=== PATIENT | female | born 1980 | race Caucasian/White ===

== ENCOUNTER 2017-02-02 12:58 | Emergency (ER) | payer SELFPAY ==
[2017-02-02 13:40] LABS: APPEARANCE,URINE SLIGHTLY-CLOUDY; BILIRUBIN,URINE NEGATIVE (NEGATIVE); GLUCOSE, URINE NEGATIVE (NEGATIVE); KETONES,URINE NEGATIVE (NEGATIVE); LEUKOCYTE ESTERASE,URINE TRACE (NEGATIVE); NITRITE,URINE NEGATIVE (NEGATIVE); PROTEIN,URINE NEGATIVE (NEGATIVE); UROBILINOGEN,URINE NEGATIVE mg/dL (<2.0)
--- NOTE | 2017-02-02 14:03 | ER Document Report ---
ED General - General Chief Complaint: Abdominal Pain Stated Complaint: STOMACH PAIN Time Seen by Provider: 02/02/17 13:35 Mode of Arrival: Ambulatory Information source: Patient Notes: 36-year-old female presents with complaints of abdominal pain and distention. Patient believes she is has not had a period in over a year patient denies any fevers or chills notes abdomen is firm and believes as a baby Patient took urine test last night which was positive TRAVEL OUTSIDE OF THE [place] IN LAST 30 DAYS: No - HPI Onset: Other Onset/Duration: Persistent Quality of pain: Cramping Severity: Mild Pain Level: 1 Associated symptoms: None Exacerbated by: Denies Relieved by: Denies Similar symptoms previously: No Recently seen / treated by doctor: No - Related Data Allergies/Adverse Reactions: ceftriaxone sodium [From Rocephin] Allergy (Severe, Verified 02/26/15 12:15) Past Medical History - Social History Smoking Status: Current Every Day Smoker Cigarette use (# per day): Yes Chew tobacco use (# tins/day): No Smoking Education Provided: Yes - Patient counselled regarding cessation for 4 minutes Frequency of alcohol use: Rare Drug Abuse: Marijuana Family History: None Endocrine Medical History: Reports: Hx Hypothyroidism Renal/ Medical History: Denies: Hx Peritoneal Dialysis Past Surgical History: Reports: Hx Gynecologic Surgery - dnc, Hx Oral Surgery - wisdom, Hx Thyroid Surgery - Immunizations Hx Diphtheria, Pertussis, Tetanus Vaccination: Yes Review of Systems - Review of Systems Notes: REVIEW OF SYSTEMS: CONSTITUTIONAL : Denies fever, chills, or sweats. Denies recent illness. EENT: Denies eye, ear, throat, or mouth pain or symptoms. Denies nasal or sinus congestion or discharge. Denies throat, tongue, or mouth swelling or difficulty swallowing. CARDIOVASCULAR: Denies chest pain. Denies palpitations or racing or irregular heart beat. Denies ankle edema. RESPIRATORY: Denies cough, cold, or chest congestion. Denies shortness of breath, difficulty breathing, or wheezing. GASTROINTESTINAL: Admits to abdominal pain distention GENITOURINARY: Denies difficulty urinating, painful urination, burning, frequency, blood in urine, or discharge. FEMALE GENITOURINARY: States she has not had a period in 1 year MUSCULOSKELETAL: Denies back or neck pain or stiffness. Denies joint pain or swelling. SKIN: Denies rash, lesions or sores. HEMATOLOGIC : Denies easy bruising or bleeding. LYMPHATIC: Denies swollen, enlarged glands. NEUROLOGICAL: Denies confusion or altered mental status. Denies passing out or loss of consciousness. Denies dizziness or lightheadedness. Denies headache. Denies weakness or paralysis or loss of use of either side. Denies problems with gait or speech. Denies sensory loss, numbness, or tingling. Denies seizures. PSYCHIATRIC: Denies anxiety or stress. Denies depression, suicidal ideation, or homicidal ideation. ALL OTHER SYSTEMS REVIEWED AND NEGATIVE. PHYSICAL EXAMINATION: GENERAL: Well-appearing, well-nourished and in no acute distress. HEAD: Atraumatic, normocephalic. EYES: Pupils equal round and reactive to light, extraocular movements intact, conjunctiva are normal. ENT: Nares patent, oropharynx clear without exudates. Moist mucous membranes. NECK: Normal range of motion, supple without lymphadenopathy LUNGS: Breath sounds clear to auscultation bilaterally and equal. No wheezes rales or rhonchi. HEART: Regular rate and rhythm without murmurs ABDOMEN: Soft, nontender, nondistended abdomen. No guarding, no rebound. No masses appreciated. Female : deferred Musculoskeletal: Normal range of motion, no pitting or edema. No cyanosis. NEUROLOGICAL: Cranial nerves grossly intact. Normal speech, normal gait. Normal sensory, motor exams PSYCH: Normal mood, normal affect. SKIN: Warm, Dry, normal turgor, no rashes or lesions noted. Dictation was performed using [employer] voice recognition software Physical Exam - Vital signs Vitals: Temp Pulse BP Pulse Ox 97.5 F 92 102/66 100 02/02/17 13:05 02/02/17 13:05 02/02/17 13:05 02/02/17 13:05 Course - Re-evaluation Re-evalutation: 02/02/17 15:02 Lab work is pending to rule out and had thorough life-threatening issues 02/02/17 16:19 pt is noted to be , hypothyroidism noted. 02/02/17 17:36 still awaiting u/s 02/02/17 18:42 Patient's ultrasound is consistent with a 20 week 6 day , I have given the patient smoking cessation instructions medication for her thyroid follow-up with health department follow-up with [facility] After performing a Medical Screening Examination, I estimate there is LOW risk for ACUTE APPENDICITIS, BOWEL OBSTRUCTION, ACUTE CHOLECYSTITIS, PERFORATED DIVERTICULITIS, INCARCERATED HERNIA, PANCREATITIS, PELVIC INFLAMMATORY DISEASE, PERFORATED ULCER, ECTOPIC , or TUBO-OVARIAN ABSCESS, thus I consider the discharge disposition reasonable. Also, there is no evidence or peritonitis , sepsis, or toxicity. I have reevaluated this patient multiple times and no significant life threatening changes are noted. The patient and I have discussed the diagnosis and risks, and we agree with discharging home with close follow-up with the understanding that symptoms and presentations can change. We also discussed returning to the Emergency Department immediately if new or worsening symptoms occur. We have discussed the symptoms which are most concerning (e.g., bloody stool, fever, changing or worsening pain, vomiting) that necessitate immediate return. - Vital Signs Vital signs: Temp Pulse Resp BP Pulse Ox 98.1 F 92 16 105/68 100 02/02/17 18:15 02/02/17 18:15 02/02/17 18:15 02/02/17 18:15 02/02/17 18:15 - Laboratory Result Diagrams: 02/02/17 14:15 02/02/17 14:15 Laboratory results interpreted by me: 02/02/17 02/02/17 02/02/17 13:05 14:15 14:15 RBC 3.71 L Hgb 11.9 L Hct 34.7 L Sodium 136.9 L Glucose 72 L TSH Beta HCG, Quant 95367.00 H Ur Leukocyte Esterase TRACE H 02/02/17 14:15 RBC Hgb Hct Sodium Glucose TSH 23.30 H Beta HCG, Quant Ur Leukocyte Esterase - Diagnostic Test Radiology reviewed: Image reviewed, Reports reviewed - results given to patient Discharge - Discharge Clinical Impression: Qualifiers: Weeks of gestation: 21 weeks Qualified Code(s): Z3A.21 - 21 weeks gestation of Hypothyroid Qualifiers: Hypothyroidism type: unspecified Qualified Code(s): E03.9 - Hypothyroidism, unspecified Condition: Stable Disposition: HOME, SELF-CARE Additional Instructions: Follow up with your physician tomorrow for further care or return to the ED IMMEDIATELY if symptoms worsen or new concerns occur. If you cannot afford to follow up with your primary care physician a list of low cost clinics have been provided at the end of your discharge papers as well. Prescriptions: Levothyroxine Sodium [Synthroid 0.05 mg Tablet] 0.05 mg PO DAILY #30 tablet No122/Iron/Folic Acid [ Multi Tablet] 1 each PO DAILY #30 tablet Forms: Return to Work Referrals: EMETERIO SARMIENTO MD [Primary Care Provider] - Follow up as needed
[2017-02-02 14:28] LABS: ABSOLUTE EOSINOPHILS # (AUTO) 0.2 10^3/uL (0.0-0.6); ABSOLUTE LYMPHOCYTES (AUTO) 1.9 10^3/uL (0.5-4.7); ABSOLUTE MONOCYTES (AUTO) 0.6 10^3/uL (0.1-1.4); ABSOLUTE NEUT (AUTO) 6.8 10^3/uL (1.7-8.2); BASOPHILS % (AUTO) 0.4 % (0-2); EOSINOPHILS % (AUTO) 1.7 % (0-6); HEMATOCRIT 34.7 % (36.0-47.0); HEMOGLOBIN 11.9 g/dL (12.0-15.5); LYMPHOCYTES % (AUTO) 19.7 % (13-45); MEAN CORPUSCULAR HGB CONC 34.2 g/dL (32.0-36.0); MEAN CORPUSCULAR VOLUME 94 fl (80-97); MONOCYTES % (AUTO) 6.2 % (3-13); RED BLOOD COUNT 3.71 10^6/uL (3.72-5.28); RED CELL DISTRIBUTION WIDTH 13.9 % (11.5-14.0); WHITE BLOOD COUNT 9.5 10^3/uL (4.0-10.5)
[2017-02-02 14:49] LABS: ALANINE AMINOTRANSFERASE 26 U/L (9-52); ALBUMIN 3.7 g/dL (3.5-5.0); ALKALINE PHOSPHATASE 52 U/L (38-126); ANION GAP 7 (5-19); ASPARTATE AMINO TRANSFERASE 18 U/L (14-36); BILIRUBIN,DIRECT 0.3 mg/dL (0.0-0.4); BILIRUBIN,TOTAL 0.3 mg/dL (0.2-1.3); BLOOD UREA NITROGEN 7 mg/dL (7-20); CALCIUM 9.3 mg/dL (8.4-10.2); CARBON DIOXIDE 24 mmol/L (22-30); CHLORIDE 106 mmol/L (98-107); GLUCOSE 72 mg/dL (75-110); SODIUM 136.9 mmol/L (137-145); TOTAL PROTEIN 6.3 g/dL (6.3-8.2)
--- NOTE | 2017-02-02 17:51 | RADIOLOGY REPORT (SQ) ---
EXAM DESCRIPTION: U/S OB 14+ TRNABD 1GES W/O DOP COMPLETED DATE/TIME: 02/02/2017 5:42 pm REASON FOR STUDY: abd pain COMPARISON: None. TECHNIQUE: Limited transabdominal grayscale ultrasound for evaluation of specific requested obstetri shante parameters. LIMITATIONS: None. FINDINGS: Live intrauterine Leon with ultrasound composite age measuring 20 weeks 6 d ays, TINA 06/16/2017. EFW 401 g. Posterior placenta. Breech presentation. CERVICAL LENGTH: 3.0 cm Closed. LVP: 4.1 cm cm. FHR: 153 beats per minute. PRESENTATION: Cephalic. OTHER: Ovaries not visualized. IMPRESSION: LIMITED OBSTETRICAL ULTRASOUND WITH MEASURED PARAMETERS DELINEATED ABOVE. Trimester of : Second trimester - 13 weeks 1 day to 27 weeks 6 days. TECHNICAL DOCUMENTATION: JOB ID: [id number] [employer]- All Rights Reserved
[2017-02-02 18:28] VITALS: BP 105/68
== END 2017-02-02 18:15 | disposition home or self-care (01) ==
LOC: ER 12:58
DX: O99.282 Endocrine, nutritional and metabolic diseases complicating pregnancy, second trimester (principal); E03.9 Hypothyroidism, unspecified; O99.332 Smoking (tobacco) complicating pregnancy, second trimester; Z3A.20 20 weeks gestation of pregnancy
CPT/HCPCS: 36415; 76805; 80053; 81001; 84443; 84702; 85025; 99284; 99406

== ENCOUNTER 2017-05-17 11:57 | Outpatient (CLI) | payer MEDICAID ==
--- NOTE | 2017-05-17 12:32 | Non Stress Test Report ---
Non Stress Test Datetime Report Generated by CPN: 05/17/2017 12:31 DEMOGRAPHIC EGA NST: 35.5 INDICATION Indication for Study: Other Indication for Study (NST) Other: AMA VITAL SIGNS Temperature - NST: 97.4 Pulse - NST: 67 RESP - NST: 18 NBPSYS NST: 87 NBPDIA NST: 54 MONITORING Monitor Explained: Monitor Explained; Test Explained; Patient Verbalized Understanding Time on Monitor: 05/17/2017 12:10 Time off Monitor: 05/17/2017 12:31 NST Duration: 21 NST INTERVENTIONS NST Interventions: PO Hydration; Reposition Patient Physician Notified NST: A Emmel CNM BABY A: [id number] BABY A Movement : Present Contraction Frequency : irregular FHR Baseline : 120 Accelerations : 15X15 Decelerations : None Variability : Moderate 6-25bpm NST Review: Meets Criteria for Reactive NST NST Review and Verified By : Floresita Grider RNC NST Results: Reactive NST REPORT Report Trigger: Send Report
== END 2017-05-17 12:35 | disposition home or self-care (01) ==
LOC: LC 11:57
PROVIDERS: ATTEND Obstetrics & Gynecology Gynecology
PROC: 4A1HXCZ Monitoring of Products of Conception, Cardiac Rate, External Approach (ICD-10-PCS; principal; 2017-05-17)
DX: Z34.93 Encounter for supervision of normal pregnancy, unspecified, third trimester (principal)
CPT/HCPCS: 59025

== ENCOUNTER 2017-06-15 08:26 | Inpatient (IN) | payer MEDICAID ==
[2017-06-15] MEDS ORDERED: PENICILLIN G POTASSIUM 5,000,000 UNIT in DEXTROSE 5%-WATER 100 ML IV ONE (09:03)
[2017-06-15] MEDS ORDERED: RINGERS SOLUTION,LACTATED 1,000 ML IV ONE (09:03)
[2017-06-15] MEDS ORDERED: LIDOCAINE 1% INJ-PF (10 MG/ML) 30 ML SDV ONE (09:27)
[2017-06-15] MEDS ORDERED: PENICILLIN G-K 5 MILLION UNIT VIAL ONE (09:27)
[2017-06-15] MEDS ORDERED: MISOPROSTOL 0.2 MG TABLET ONE (09:27)
[2017-06-15] MEDS ORDERED: OXYTOCIN/NORMAL SALINE 20 UNIT/1,000 ML RTUINJ ONE (09:27)
[2017-06-15 09:38] LABS: APPEARANCE,URINE SLIGHTLY-CLOUDY; BILIRUBIN,URINE NEGATIVE (NEGATIVE); COLOR,URINE STRAW; GLUCOSE, URINE NEGATIVE (NEGATIVE); KETONES,URINE NEGATIVE (NEGATIVE); LEUKOCYTE ESTERASE,URINE LARGE (NEGATIVE); NITRITE,URINE NEGATIVE (NEGATIVE); PROTEIN,URINE NEGATIVE (NEGATIVE); URINE SPECIFIC GRAVITY 1.005; UROBILINOGEN,URINE NEGATIVE mg/dL (<2.0)
[2017-06-15] MEDS ORDERED: FENTANYL/BUPIVACAINE/NS/PF 0 MCG/0 ML RTUINJ EPI ONE (09:41)
[2017-06-15] MEDS ORDERED: BUPIVACAINE HCL 0.25 % INJ/PF (2.5 MG/1 ML) 30 ML VIAL ONE (09:41)
[2017-06-15] MEDS ORDERED: EPHEDRINE SULFATE INJ 50 MG/1 ML AMPULE ONE (09:41)
[2017-06-15 09:54] LABS: URINE AMPHETAMINES SCREEN NEGATIVE; URINE BARBITURATES SCREEN NEGATIVE; URINE COCAINE SCREEN NEGATIVE; URINE METHADONE SCREEN NEGATIVE; URINE PHENCYCLIDINE SCREEN NEGATIVE
[2017-06-15 09:59] LABS: URINE BENZODIAZEPINES SCREEN UNCONFIRMED POSITIVE; URINE MARIJUANA (THC) SCREEN UNCONFIRMED POSITIVE
[2017-06-15] MEDS ORDERED: IBUPROFEN 800 MG TABLET ONE (10:25)
[2017-06-15] MEDS ORDERED: ACETAMINOPHEN 650 MG SUPP.RECT PR PRN (10:27)
[2017-06-15] MEDS ORDERED: PROMETHAZINE HCL INJ 25 MG/1 ML VIAL IV PRN (10:27)
[2017-06-15] MEDS ORDERED: MEASLES,MUMPS&RUBELLA VACC/PF 0.5 ML VIAL SUBCUT PRN (10:27)
[2017-06-15] MEDS ORDERED: PROMETHAZINE HCL 25 MG TABLET PO PRN (10:27)
[2017-06-15] MEDS ORDERED: GLYCERIN/WITCH HAZEL LEAF 1 EACH MED..PAD TP PRN (10:27)
[2017-06-15] MEDS ORDERED: DIPH/PERTUSS(ACELL)/TETANUS VAC/PF 0.5 ML SYR (>=10YO) IM PRN (10:27)
[2017-06-15] MEDS ORDERED: PROMETHAZINE HCL 25 MG SUPP.RECT PR PRN (10:27)
[2017-06-15] MEDS ORDERED: PSEUDOEPHEDRINE HCL 30 MG TABLET PO PRN (10:27)
[2017-06-15] MEDS ORDERED: ACETAMINOPHEN 325 MG TABLET PO PRN ×2 (10:27→18:00)
[2017-06-15] MEDS ORDERED: MAGNESIUM HYDROXIDE SUSP 30 ML UDCUP PO PRN (10:27)
[2017-06-15] MEDS ORDERED: NA PHOS,M-B/NA PHOS,DI-BA (ADULT) 133 ML ENEMA PR PRN (10:27)
[2017-06-15] MEDS ORDERED: BENZOCAINE/MENTHOL AEROSOL SPRAY 56 ML TOP PRN (10:27)
[2017-06-15] MEDS ORDERED: DIPHENHYDRAMINE HCL 25 MG CAPSULE PO PRN (10:27)
[2017-06-15] MEDS ORDERED: OXYTOCIN/NORMAL SALINE 20 UNIT/1,000 ML RTUINJ IV PRN (10:27)
[2017-06-15] MEDS ORDERED: DIBUCAINE 1% OINTMENT 28 GM TP PRN (10:27)
[2017-06-15 11:35] LABS: ABSOLUTE BASOPHILS # (AUTO) 0.1 10^3/uL (0.0-0.2); ABSOLUTE LYMPHOCYTES (AUTO) 1.1 10^3/uL (0.5-4.7); ABSOLUTE MONOCYTES (AUTO) 0.6 10^3/uL (0.1-1.4); ABSOLUTE NEUT (AUTO) 11.1 10^3/uL (1.7-8.2); BASOPHILS % (AUTO) 0.6 % (0-2); EOSINOPHILS % (AUTO) 0.3 % (0-6); HEMATOCRIT 33.4 % (36.0-47.0); HEMOGLOBIN 10.9 g/dL (12.0-15.5); LYMPHOCYTES % (AUTO) 8.2 % (13-45); MEAN CORPUSCULAR HEMOGLOBIN 27.8 pg (27.0-33.4); MEAN CORPUSCULAR HGB CONC 32.6 g/dL (32.0-36.0); MEAN CORPUSCULAR VOLUME 85 fl (80-97); MONOCYTES % (AUTO) 4.4 % (3-13); PLATELET COUNT 118 10^3/uL (150-450); RED BLOOD COUNT 3.92 10^6/uL (3.72-5.28); SEGMENTED NEUTROPHILS % (AUTO) 86.5 % (42-78); TOTAL CELLS COUNTED % (AUTO) 100 %; WHITE BLOOD COUNT 12.8 10^3/uL (4.0-10.5)
[2017-06-15] MEDS ORDERED: PENICILLIN G POTASSIUM 2,500,000 UNIT in DEXTROSE 5%-WATER 50 ML IV SCH (13:05)
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
[2017-06-15] MEDS: IBUPROFEN 800 MG TABLET PO SCH ×2 (17:53→21:02)
[2017-06-15] MEDS ORDERED: ACETAMINOPHEN 325 MG TABLET ONE (17:55)
[2017-06-15] MEDS: DOCUSATE SODIUM 100 MG CAPSULE PO SCH (18:02)
[2017-06-15] MEDS: FERROUS SULFATE 325 MG TABLET PO SCH (18:02)
[2017-06-15] MEDS: FAMOTIDINE 20 MG TABLET PO SCH (21:02)
[2017-06-16] MEDS: LEVOTHYROXINE SODIUM 0.1 MG TABLET PO SCH (05:42)
[2017-06-16] MEDS: IBUPROFEN 800 MG TABLET PO SCH ×3 (05:42→21:07)
[2017-06-16] MEDS: FERROUS SULFATE 325 MG TABLET PO SCH ×2 (10:49→18:11)
[2017-06-16] MEDS: FAMOTIDINE 20 MG TABLET PO SCH ×2 (10:49→21:08)
[2017-06-16] MEDS: PRENATAL VITAMIN W DHA CAPSULE PO SCH (10:50)
[2017-06-16] MEDS: DOCUSATE SODIUM 100 MG CAPSULE PO SCH ×2 (10:50→18:11)
[2017-06-16] MEDS: SENNOSIDES/DOCUSATE 8.6-50 MG 1 EACH TABLET PO SCH (10:51)
--- NOTE | 2017-06-16 11:45 | PDOC PROGRESS REPORT ---
Subjective-OB Progress Note for:: 06/16/17 Subjective: Day # 1 Doing well, bonding with baby, lochia is stable, pain well controlled, voiding without difficulty. Physical Exam (OB) Vital Signs: Temp Pulse Resp BP Pulse Ox 97.8 F 66 18 105/67 100 06/16/17 08:13 06/16/17 08:13 06/16/17 08:13 06/16/17 08:13 06/16/17 08:13 Intake & Output 06/15/17 06/16/17 06/17/17 06:59 06:59 06:59 Intake Total 300 Balance 300 Weight 60.6 kg - Lochia Lochia Amount: Small 10-25 ml Lochia Color: Rubra/Red - Abdomen Description: Soft, Round Hernia Present: No Fundal Description: Firm Fundal Height: u/u - u/2 Objective-Diagnostic Laboratory: 06/15/17 11:23 06/15/17 06/15/17 06/15/17 11:23 11:23 11:23 WBC 12.8 H RBC 3.92 Hgb 10.9 L Hct 33.4 L MCV 85 MCH 27.8 MCHC 32.6 RDW 15.0 H Plt Count 118 L Seg Neutrophils % 86.5 H Lymphocytes % 8.2 L Monocytes % 4.4 Eosinophils % 0.3 Basophils % 0.6 Absolute Neutrophils 11.1 H Absolute Lymphocytes 1.1 Absolute Monocytes 0.6 Absolute Eosinophils 0.0 Absolute Basophils 0.1 TSH 14.80 H Free T4 Blood Type A POSITIVE Antibody Screen NEGATIVE 06/15/17 11:23 WBC RBC Hgb Hct MCV MCH MCHC RDW Plt Count Seg Neutrophils % Lymphocytes % Monocytes % Eosinophils % Basophils % Absolute Neutrophils Absolute Lymphocytes Absolute Monocytes Absolute Eosinophils Absolute Basophils TSH Free T4 1.03 Blood Type Antibody Screen Assessment and Plan(PN) - Assessment and Plan (1) Advanced maternal age (AMA) in Is this a current diagnosis for this admission?: Yes Plan: n/a (2) Cannabis abuse Is this a current diagnosis for this admission?: Yes Plan: cessation encouraged (3) Cigarette smoker Is this a current diagnosis for this admission?: Yes Plan: cessation encouraged. (4) Hypothyroidism Qualifiers: Hypothyroidism type: other Qualified Code(s): E03.8 - Other specified hypothyroidism Is this a current diagnosis for this admission?: Yes Plan: synthroid 200 mcg daily (5) Limited care Qualifiers: Trimester: third trimester Qualified Code(s): O09.33 - Supervision of with insufficient care, third trimester Is this a current diagnosis for this admission?: Yes Plan: d/c planner chief (6) Vaginal delivery Is this a current diagnosis for this admission?: Yes Plan: routine pp care - Time Spent with Patient Time with patient: Less than 15 minutes Critical Time spent with patient: Less than 15 minutes Smoking Education Provided: Over 3 minutes Medications reviewed and adjusted accordingly: Yes - Disposition Anticipated Discharge: Home Within: within 48 hours
--- NOTE | 2017-06-16 18:45 | Delivery Summary ---
Del Sum A-C Datetime Report Generated by CPN: 06/16/2017 18:44 DELIVERY PERSONNEL DELIVERY PERSONNEL: [id number] Delivery Doctor:: Daysi Syed, CNM Nurse Graduate Fellow Certified:: Daysi Syed, CNSridevi Labor and Delivery Nurse:: Mariel Robertson, RNC Labor and Delivery Nurse:: Floresita Grider, RNC Nursery Nurse:: Mona Garces, RN Data Librarian/RN SURGICAL: Macie Chávez CNA II Data Librarian/RN SURGICAL: Sara Hill, LIGHT RAIL TRANSIT OPERATOR MATERNAL INFORMATION Delivery Anesthesia: None Medications After Delivery: Pitocin Bolus-Please Comment Meds After Delivery Comment: Pitocin 20 units in 1000 ml NSS Estimated Blood Loss (ml): 150 Maternal Complications: Other Provider Comments: Pt. quickly progressed to c/c/0 with urge to push. SROM upon entering room (clear fluid). Nursery called in for delivery and pt. began pushing. Baby delivered TONI with left compound hand. Vigorous respiratory effort and cry spontaneously at . Baby placed on maternal abdomen and cord allowed to stop pulsating then clamped x2 and cut by FOB (3vc noted). Placenta delivered spontaneously intact (marginal insertion) and sent to lab for eval. Fundus firm and bleeding stable. MLL repaired as stated; hemostasis achieved. Mother and baby stable and bonding at this time. LABOR SUMMARY EDC: 06/16/2017 00:00 No. Babies in Womb: 1 Attempted: No Labor Anesthesia: None LABOR INFORMATION Reason for Induction: Not Applicable Onset of Labor: 06/15/2017 02:30 Complete Dilatation: 06/15/2017 09:40 Oxytocin: N/A Group B Beta Strep: unknown Antibiotics # of Doses: 1 Antibiotics Time of Last Dose: 924 Name of Antibiotic Given: Penicillin Steroids Given: None Reason Steroids Not Administered: Not Applicable MEMBRANES Membranes Rupture Method: Spontaneous Rupture of Membranes: 06/15/2017 09:40 Length of Rupture (hr): 0.42 Amniotic Fluid Color: Clear Amniotic Fluid Amount: Moderate Amniotic Fluid Odor: Normal STAGES OF LABOR Stage 1 hr: 7 Stage 1 min: 10 Stage 2 hr: 0 Stage 2 min: 25 Stage 3 hr: 0 Stage 3 min: 5 Total Time in Labor hr: 7 Total Time in Labor min: 40 VAGINAL DELIVERY Episiotomy: None Laceration #1: Perineal; Vaginal Laceration Extension #1: First Degree Other Laceration: bilateral superficial labial abrasions-not bleeding, not repaired Laceration Repair: Yes Laceration Repair Note: MLL repaired with 2-[address], hemostasis achieved. Sponge Count Correct: N/A Sharps Count Correct: Yes CSECTION DELIVERY Primary Indication: N/A Secondary Indication: N/A CSection Incidence: N/A Labor: N/A Elective: N/A CSection Incision: N/A BABY A INFORMATION Infant Delivery Date/Time: 06/15/2017 10:05 Method of Delivery: Vaginal Born in Route : No : N/A Forceps: N/A Vacuum Extraction: N/A Shoulder Dystocia : No PRESENTATION/POSITION BABY A Presentation: Cephalic Cephalic Presentation: Vertex Vertex Position: Left Occipital Anterior Breech Presentation: N/A PLACENTA INFORMATION BABY A Placenta Delivery Time : 06/15/2017 10:10 Placenta Method of Delivery: Spontaneous Placenta Status: Delivered SCORES BABY A Heart Rate 1 min: >100 bpm Resp Effort 1 min: Good Cry Reflex Irritability 1 min: Cough or Sneeze or Pulls Away Muscle Tone 1 min: Active Motion Color 1 min: Body [place], Extremities Blue Resuscitation Effort 1 min: Tactile Stimulation SCORE 1 MIN: 9 Heart Rate 5 min: >100 bpm Resp Effort 5 min: Good Cry Reflex Irritability 5 min: Cough or Sneeze or Pulls Away Muscle Tone 5 min: Active Motion Color 5 min: Body [place], Extremities Blue Resuscitation Effort 5 min: N/A SCORE 5 MIN: 9 Resuscitation Effort 10 min: N/A INFORMATION BABY A Gestational Age at Delivery: 39.6 Gestational Status: Full Term- 39- 40.6 Weeks Infant Outcome : Liveborn Condition : Stable Infant Sex: Female IDENTIFICATION BABY A Infant Verification Date/Time: 06/15/2017 10:44 ID Band Number: [id number] Mother's Name Verified: Yes Infant WEIGHT/LENGTH BABY A Infant Birthweight (gm): 2580 Weight (lb): 5 Weight (oz): 11 Infant Length (in): 19.75 Length (cm): 50.17 CORD INFORMATION BABY A No. Cord Vessels: 3 Nuchal Cord : N/A Cord Blood Taken: Yes-For Storage (Mom's Blood type +) Suction: None ASSESSMENT BABY A Infant Complications: Decreased Variability Complications- Other: compound left arm Physical Findings at Delivery: Within Normal Limits Infant Respirations: Appears Normal Skin to Skin: Yes Skin to Skin Time (min): 15 Care By: Mona Dez Transferred To: Remains with Mother BABY B INFORMATION : N/A SIGNATURES Assignment: Valentina Yo MD Signature: with User ID: Irma : with User ID: Irma
[2017-06-17] MEDS: LEVOTHYROXINE SODIUM 0.1 MG TABLET PO SCH (05:14)
[2017-06-17] MEDS: IBUPROFEN 800 MG TABLET PO SCH (05:15)
--- NOTE | 2017-06-17 08:35 | PDOC DISCHARGE SUMMARY ---
Final Diagnosis Discharge Date: 06/17/17 - Final Diagnosis (1) Advanced maternal age (AMA) in Is this a current diagnosis for this admission?: Yes (2) Cannabis abuse Is this a current diagnosis for this admission?: Yes (3) Cigarette smoker Is this a current diagnosis for this admission?: Yes (4) Hypothyroidism Is this a current diagnosis for this admission?: Yes (5) Limited care Is this a current diagnosis for this admission?: Yes (6) Vaginal delivery Is this a current diagnosis for this admission?: Yes Discharge Data - Discharge Medication Prescriptions: Docusate Sodium [Colace 100 mg Capsule] 100 mg PO BID #60 capsule Ferrous Sulfate [Feosol 325 mg Tablet] 325 mg PO BID #60 tablet Ibuprofen [Motrin 800 mg Tablet] 800 mg PO Q8 #60 tablet Levothyroxine Sodium [Synthroid 0.1 mg Tablet] 0.2 mg PO Q6AM #30 tablet Home Medications: Pnv No.103/Folic/Om3s/Fish Oil [ Gummies] 2 tab PO DAILY 05/17/17 Diazepam [Valium 5 mg Tablet] 2.5 mg PO QHS 06/15/17 Docusate Sodium [Colace 100 mg Capsule] 100 mg PO BID #60 capsule 06/17/17 Ferrous Sulfate [Feosol 325 mg Tablet] 325 mg PO BID #60 tablet 06/17/17 Ibuprofen [Motrin 800 mg Tablet] 800 mg PO Q8 #60 tablet 06/17/17 Levothyroxine Sodium [Synthroid 0.1 mg Tablet] 0.2 mg PO Q6AM #30 tablet Gestational Age: 39.6 Reason(s) for Admission: Onset of Labor Procedures: NST Intrapartum Procedure(s): Spontaneous Vaginal Delivery Complication(s): Laceration-Perineal Laceration-Degree: 1st - [place] Data Baby 1 Female at 1 minute: 9 at 5 minutes: 9 Weight: 250 kg Home with Mother: Yes Complications: Yes - gbs unknown, limited care, + thc and benzo - Diagnosis Test Laboratory: Temp Pulse Resp BP Pulse Ox 97.9 F 64 15 97/70 L 100 06/17/17 07:54 06/17/17 07:54 06/17/17 07:54 06/17/17 07:54 06/17/17 07:54 06/15/17 06/15/17 08:40 11:23 RBC 3.92 Hgb 10.9 L Hct 33.4 L Urine Opiates Screen NEGATIVE - Discharge information/Instructions Discharge Activity: Activity As Tolerated, No Driving, No Lifting Over 10 Pounds , Pelvic Rest, No tub bath Discharge Diet: Regular Disposition: HOME, SELF-CARE Follow up with: [facility] in: 4, Weeks
[2017-06-17] MEDS: PRENATAL VITAMIN W DHA CAPSULE PO SCH (09:40)
[2017-06-17 09:41] VITALS: BP 103/79
[2017-06-17] MEDS: SENNOSIDES/DOCUSATE 8.6-50 MG 1 EACH TABLET PO SCH (09:41)
[2017-06-17] MEDS: DOCUSATE SODIUM 100 MG CAPSULE PO SCH (09:41)
[2017-06-17] MEDS: FERROUS SULFATE 325 MG TABLET PO SCH (09:42)
[2017-06-17] MEDS: FAMOTIDINE 20 MG TABLET PO SCH (09:42)
[2017-06-17 10:31] LABS: CHLAM PCR NOT DETECTED (NOT DETECT); GON PCR NOT DETECTED (NOT DETECT)
== END 2017-06-17 12:40 | disposition home or self-care (01) | DRG 775 ==
LOC: LC 08:26 → LR 09:03 → EEVIPCON 09:03 → 2N 14:17
PROVIDERS: ADMIT Obstetrics & Gynecology; ATTEND Obstetrics & Gynecology
PROC: 10E0XZZ Delivery of Products of Conception, External Approach (ICD-10-PCS; principal; 2017-06-15)
PROC: 0HQ9XZZ Repair Perineum Skin, External Approach (ICD-10-PCS; 2017-06-15)
PROC: 4A1HXCZ Monitoring of Products of Conception, Cardiac Rate, External Approach (ICD-10-PCS; 2017-06-15)
DX: O99.334 Smoking (tobacco) complicating childbirth (principal); O99.324 Drug use complicating childbirth; F12.10 Cannabis abuse, uncomplicated; F17.210 Nicotine dependence, cigarettes, uncomplicated; O70.0 First degree perineal laceration during delivery; O32.6XX0 Maternal care for compound presentation, not applicable or unspecified; O99.284 Endocrine, nutritional and metabolic diseases complicating childbirth; E03.9 Hypothyroidism, unspecified; O99.344 Other mental disorders complicating childbirth; F43.10 Post-traumatic stress disorder, unspecified; F41.9 Anxiety disorder, unspecified; F13.90 Sedative, hypnotic, or anxiolytic use, unspecified, uncomplicated; Z3A.39 39 weeks gestation of pregnancy; Z62.810 Personal history of physical and sexual abuse in childhood; Z37.0 Single live birth
CPT/HCPCS: 36415; 80307; 81005; 84439; 84443; 85025; 86592; 86850; 86900; 86901; 87491; 87591; 88307; 94760; G0480; J2540; J2590; J3490

== ENCOUNTER 2020-01-27 09:57 | Emergency (ER) | payer MEDICAID ==
--- NOTE | 2020-01-27 10:56 | ER Document Report ---
ED Medical Screen (RME) - General Chief Complaint: Abdominal Pain Stated Complaint: RIGHT FLANK PAIN Time Seen by Provider: 01/27/20 10:50 Notes: Patient is a 39-year-old female who presents emergency department with a chief complaint of right lower quadrant abdominal pain. Patient states that about 4 weeks ago, she ended up having an . Patient states that her pain this time, started 3 days ago. States that the pain moved from her mid lower abdomen and the right side of her abdomen. Denies any nausea, vomiting, diarrhea. Exam: Tender right lower quadrant. I have greeted and performed a rapid initial assessment of this patient. A comprehensive ED assessment and evaluation of the patient, analysis of test results and completion of medical decision making process will be conducted by an additional ED providers. TRAVEL OUTSIDE OF THE [place] IN LAST 30 DAYS: No - Related Data Allergies/Adverse Reactions: ceftriaxone sodium [From Rocephin] Allergy (Severe, Verified 01/27/20 10:49) Home Medications: VALIUM. THYROID NOT CURRENTLY TAKING. CONTROL Past Medical History - Social History Chew tobacco use (# tins/day): No Frequency of alcohol use: None Drug Abuse: Marijuana Endocrine Medical History: Reports: Hx Hypothyroidism Renal/ Medical History: Denies: Hx Peritoneal Dialysis Past Surgical History: Reports: Hx Gynecologic Surgery - dnc, Hx Oral Surgery - wisdom, Hx Thyroid Surgery - Immunizations Hx Diphtheria, Pertussis, Tetanus Vaccination: Yes Physical Exam - Vital signs Vitals: Temp Pulse Resp BP Pulse Ox 98.1 F 99 18 99/69 L 99 01/27/20 10:03 01/27/20 10:03 01/27/20 10:03 01/27/20 10:03 01/27/20 10:03 Course - Vital Signs Vital signs: Temp Pulse Resp BP Pulse Ox 98.1 F 99 18 99/69 L 99 01/27/20 10:49 01/27/20 10:03 01/27/20 10:03 01/27/20 10:03 01/27/20 10:03
[2020-01-27 11:58] LABS: ABSOLUTE LYMPHOCYTES (AUTO) 0.8 10^3/uL (0.5-4.7); ABSOLUTE NEUT (AUTO) 12.2 10^3/uL (1.7-8.2); BASOPHILS % (AUTO) 0.2 % (0-2); EOSINOPHILS % (AUTO) 0.2 % (0-6); HEMATOCRIT 34.5 % (36.0-47.0); HEMOGLOBIN 11.5 g/dL (12.0-15.5); LYMPHOCYTES % (AUTO) 5.4 % (13-45); MEAN CORPUSCULAR HEMOGLOBIN 30.4 pg (27.0-33.4); MEAN CORPUSCULAR HGB CONC 33.3 g/dL (32.0-36.0); MEAN CORPUSCULAR VOLUME 91 fl (80-97); MONOCYTES % (AUTO) 7.2 % (3-13); PLATELET COUNT 175 10^3/uL (150-450); RED BLOOD COUNT 3.77 10^6/uL (3.72-5.28); RED CELL DISTRIBUTION WIDTH 15.6 % (11.5-14.0); TOTAL CELLS COUNTED % (AUTO) 100 %
[2020-01-27 12:04] LABS: APPEARANCE,URINE SLIGHTLY-CLOUDY; BILIRUBIN,URINE NEGATIVE (NEGATIVE); COLOR,URINE YELLOW; GLUCOSE, URINE NEGATIVE (NEGATIVE); KETONES,URINE NEGATIVE (NEGATIVE); LEUKOCYTE ESTERASE,URINE MODERATE (NEGATIVE); NITRITE,URINE POSITIVE (NEGATIVE); PROTEIN,URINE 100 mg/dL (NEGATIVE); URINE SPECIFIC GRAVITY 1.009
--- NOTE | 2020-01-27 12:11 | RADIOLOGY REPORT (SQ) ---
EXAM DESCRIPTION: U/S NON OB PEL TV W/DOPPLER IMAGES COMPLETED DATE/TIME: 01/27/2020 11:44 am REASON FOR STUDY: RLQ pain; 4 weeks ago COMPARISON: None. TECHNIQUE: Dynamic and static grayscale images acquired of the pelvis via transvaginal approach and recorded on PACS. Additional selected color Doppler and spectral images recorded. LIMITATIONS: None. FINDINGS: UTERUS: The uterus measures 8.3 x 6.3 x 4.4 cm. The echotexture of the myometrium is homo geneous. ENDOMETRIAL STRIPE: There is a complex cystic structure within the endometrial canal that measures 1. 5 x 1.3 x 1.2 cm ; and on Doppler there is evidence of color flow within the endometrium. CERVIX: There cervix measures 2.5 cm in length. RIGHT OVARY AND DOPPLER: The right ovary measures 2.2 x 1.7 x 1.9 cm and on Doppler there is intact a rterial inflow and venous outflow within the ovarian stroma. There is no adnexal mass. LEFT OVARY AND DOPPLER: The left ovary measures 1.7 x 1.9 x 2.2 cm and on Doppler there is intact art erial inflow and venous outflow within the ovarian stroma. There is no adnexal mass. FREE FLUID: None noted. OTHER: No other finding. IMPRESSION: Complex cystic intrauterine structure that measures 1.5 x 1.3 x 1.2 cm. In the setting of a reported the primary differential consideration is retained products of gestation. TECHNICAL DOCUMENTATION: JOB ID: [id number] 2010 [employer]- All Rights Reserved Rev Reading location - IP/workstation name: [email or web address]
[2020-01-27 12:24] LABS: ALKALINE PHOSPHATASE 83 U/L (38-126); ANION GAP 10 (5-19); ASPARTATE AMINO TRANSFERASE 21 U/L (14-36); BILIRUBIN,DIRECT 0.4 mg/dL (0.0-0.4); BILIRUBIN,TOTAL 0.7 mg/dL (0.2-1.3); BLOOD UREA NITROGEN 6 mg/dL (7-20); CALCIUM 8.8 mg/dL (8.4-10.2); CARBON DIOXIDE 24 mmol/L (22-30); CHLORIDE 103 mmol/L (98-107); GLUCOSE 109 mg/dL (75-110); POTASSIUM 4.2 mmol/L (3.6-5.0); TOTAL PROTEIN 7.1 g/dL (6.3-8.2)
--- NOTE | 2020-01-27 14:42 | ER Document Report ---
ED GI/ - General Chief Complaint: Abdominal Pain Stated Complaint: RIGHT FLANK PAIN Time Seen by Provider: 01/27/20 10:50 Primary Care Provider: NILSON CASSIDY MD [Primary Care Provider] - Follow up as needed Mode of Arrival: Ambulatory Information source: Patient Notes: Patient is a 39-year-old female presenting to the emergency department with 3- day history of right lower quadrant abdominal pain with fever and nausea. Patient reports pain is worse with movement, worse with coughing. She does report that she had a chemical about 4 weeks ago, she states she was about 6 weeks . She states that she is continuing to have a small amount of vaginal bleeding however it is not heavy. She is a G7, P3. Her last oral intake was this morning at 8 AM. TRAVEL OUTSIDE OF THE [place] IN LAST 30 DAYS: No - Related Data Allergies/Adverse Reactions: ceftriaxone sodium [From Rocephin] Allergy (Severe, Verified 01/27/20 10:49) Home Medications: VALIUM. THYROID NOT CURRENTLY TAKING. CONTROL Past Medical History - General Information source: Patient - Social History Smoking Status: Current Every Day Smoker Chew tobacco use (# tins/day): No Frequency of alcohol use: None Drug Abuse: Marijuana Family History: None Patient has homicidal ideation: No Endocrine Medical History: Reports: Hx Hypothyroidism Renal/ Medical History: Denies: Hx Peritoneal Dialysis Past Surgical History: Reports: Hx Gynecologic Surgery - dnc, Hx Oral Surgery - wisdom, Hx Thyroid Surgery - Immunizations Hx Diphtheria, Pertussis, Tetanus Vaccination: Yes Review of Systems - Review of Systems Constitutional: Chills, Fever EENT: No symptoms reported Cardiovascular: No symptoms reported Respiratory: No symptoms reported Gastrointestinal: Abdominal pain, Nausea, Vomiting Genitourinary: Dysuria Female Genitourinary: Vaginal bleeding - scant Musculoskeletal: No symptoms reported Skin: No symptoms reported Hematologic/Lymphatic: No symptoms reported Neurological/Psychological: No symptoms reported Physical Exam - Vital signs Vitals: Temp Pulse Resp BP Pulse Ox 98.1 F 99 18 99/69 L 99 01/27/20 10:03 01/27/20 10:03 01/27/20 10:03 01/27/20 10:03 01/27/20 10:03 - Notes Notes: PHYSICAL EXAMINATION: GENERAL: Well-appearing, well-nourished and in no acute distress. HEAD: Atraumatic, normocephalic. EYES: Pupils equal round and reactive to light, extraocular movements intact, conjunctiva are normal. ENT: Nares patent, oropharynx clear without exudates. Moist mucous membranes. NECK: Normal range of motion, supple without lymphadenopathy LUNGS: Breath sounds clear to auscultation bilaterally and equal. No wheezes rales or rhonchi. HEART: Regular rate and rhythm without murmurs ABDOMEN: Soft, nontender, nondistended abdomen. No guarding, no rebound. No masses appreciated. Female : deferred Musculoskeletal: Normal range of motion, no pitting or edema. No cyanosis. NEUROLOGICAL: Cranial nerves grossly intact. Normal speech, normal gait. Nor mal sensory, motor exams PSYCH: Normal mood, normal affect. SKIN: Warm, Dry, normal turgor, no rashes or lesions noted. Course - Re-evaluation Re-evalutation: At the time of my initial evaluation patient reports she now has no pain in her abdomen. She denies any abnormal vaginal discharge. She does report scant vaginal bleeding secondary to her recent chemical . 01/27/20 15:30 Spoke with on-call [employer]CHITECT, Dr. Yo. He states patient does need to come in TO THE OFFICE for repeat quantitative hCGs until they are negative. Will set patient up with his office for this. CT scan shows pyelonephritis. This is consistent with patient's urinalysis. She does have leukocytosis with a white blood count of 14,000. She however appears well and nontoxic. She was given a dose of IV antibiotics here in the emergency department, she will be started on oral antibiotics. Patient is able to tolerate oral intake. Very strict ED return precautions discussed, patient verbalizes understanding and agreement with same. - Vital Signs Vital signs: Temp Pulse Resp BP Pulse Ox 98.6 F 78 14 101/67 98 01/27/20 17:05 01/27/20 17:05 01/27/20 17:05 01/27/20 17:05 01/27/20 17:05 - Laboratory Result Diagrams: 01/27/20 11:10 01/27/20 11:10 Laboratory results interpreted by me: 01/27/20 01/27/20 01/27/20 11:10 11:10 11:10 WBC 14.0 H Hgb 11.5 L Hct 34.5 L RDW 15.6 H Lymph % (Auto) 5.4 L Absolute Neuts (auto) 12.2 H Seg Neutrophils % 87.0 H Sodium 136.9 L BUN 6 L Beta HCG, Quant 234.47 H Urine Protein 100 H Urine Blood MODERATE H Urine Nitrite POSITIVE H Urine Urobilinogen 4.0 H Ur Leukocyte Esterase MODERATE H Discharge - Discharge Clinical Impression: Pyelonephritis Abdominal pain Qualifiers: Abdominal location: unspecified location Qualified Code(s): R10.9 - Unspecified abdominal pain Condition: Stable Disposition: HOME, SELF-CARE Additional Instructions: Please follow-up with the [facility] or the health department for repeat quantitative hCG levels. You need to get these drawn at least weekly until your levels have gone down to 0. We are treating at this time for pyelonephritis which is an infection in your kidneys. It is imperative that you take the medication that we have prescribed exactly as directed. It is also imperative that you finish the entire course even if your symptoms resolve. Return to the emergency department if you cannot control your fevers with Tylenol and ibuprofen, you start vomiting persistently or you are unable to hold down your antibiotics. Prescriptions: Ciprofloxacin HCl [Cipro 500 mg Tablet] 500 mg PO BID #14 tablet Ondansetron [Zofran Odt 4 mg Tablet] 1 - 2 tab PO Q4H PRN #15 tab.rapdis PRN Reason: For Nausea/Vomiting Referrals: NILSON CASSIDY MD [Primary Care Provider] - Follow up as needed
[2020-01-27] MEDS ORDERED: NORMAL SALINE 1000 ML 1,000 ML IV ONE (15:23)
[2020-01-27] MEDS ORDERED: CIPROFLOXACIN 400 MG/D5W RTU 400 MG/200 ML RTUPB IV ONE (15:24)
--- NOTE | 2020-01-27 15:39 | RADIOLOGY REPORT (SQ) ---
EXAM DESCRIPTION: CT ABD/PELVIS WITH IV ONLY IMAGES COMPLETED DATE/TIME: 01/27/2020 3:01 pm REASON FOR STUDY: RLQ abd pain COMPARISON: Ultrasound of the pelvis from 01/27/2020. TECHNIQUE: CT scan of the abdomen and pelvis performed using helical scanning technique with dynamic intravenous contrast injection. No oral contrast. Images reviewed with lung, soft tissue, and bone windows. Reconstructed coronal and sagittal MPR images reviewed. Delayed images for evaluation of the urinary system also acquired. All images stored on PACS. All CT scanners at this facility use dose modulation, iterative reconstruction, and/or weight based d osing when appropriate to reduce radiation dose to as low as reasonably achievable (ALARA). [facility]: Dose Right [facility]: CareDose [facility]: Dose Right [facility]: Teradose 4D [facility]: Payveris CONTRAST TYPE AND DOSE: Contrast/concentration: Isovue 350.00 mmol/ml; Total Contrast Delivered: 55. 0 ml; Total Saline Delivered: 45.0 ml RENAL FUNCTION: GFR > 60. RADIATION DOSE: CT Rad equipment meets quality standard of care and radiation dose reduction techniq ues were employed. CTDIvol: 4.8 mGy. DLP: 714 mGy-cm. LIMITATIONS: None. FINDINGS: LOWER CHEST: No acute findings. LIVER: The morphology of the liver is noncirrhotic. The portal veins are patent. There is no hepati c mass. SPLEEN: No splenomegaly or splenic mass. PANCREAS: No acute gross abnormality of the pancreas. GALLBLADDER: No abnormality that is apparent on CT. ADRENAL GLANDS: No mass or asymmetry. RIGHT KIDNEY AND URETER: The striated enhancement pattern of the renal parenchyma with bands of low attenuation that efface the normal corticomedullary differentiation. There is no solid mass, hydrone phrosis, nephrolithiasis, hydroureter or ureterolithiasis. There is no perinephric abscess or fluid. LEFT KIDNEY AND URETER: Cortical renal defects in the lower pole of the kidney. The enhancement pat tern of the renal parenchyma is striated with bands of low attenuation that efface the normal cortico medullary differentiation. The 3 mm calcification in the interpolar portion of the kidney could repr esent a calculus. There is no hydronephrosis, hydroureter or ureterolithiasis. AORTA AND VESSELS: The gonadal veins are enlarged and there are prominent bilateral parametrial vesse ls. The renal veins and arteries are patent. RETROPERITONEUM: No retroperitoneal adenopathy, hemorrhage or mass. BOWEL AND PERITONEAL CAVITY: No bowel obstruction, bowel wall thickening or pericolonic/ perienteric inflammation. No mesenteric adenopathy, free intraconal fluid or mesenteric/omental inflammation. APPENDIX: Normal. PELVIS: There is re- demonstration of a cystic intrauterine lesion with surrounding hyperemia - refer to the separate ultrasound of the pelvis. There is no adnexal mass. The urinary bladder is normal in appearance. ABDOMINAL WALL: No mass or hernia. BONES: No acute findings. OTHER: No other findings. IMPRESSION: 1. Striated enhancement pattern of the renal parenchyma with bands of low attenuation th at efface thin normal corticomedullary differentiation. These findings are concerning for bilateral pyelonephritis. 2. Cystic intrauterine lesion with surrounding hyperemia - refer to the separate ultrasound of the pe lvis. 3. Enlarged gonadal and parametrial veins. TECHNICAL DOCUMENTATION: JOB ID: [id number] Quality ID # [id number]: Final reports with documentation of one or more dose reduction techniques (e.g., Au tomated exposure control, adjustment of the mA and/or kV according to patient size, use of iterative reconstruction technique) 2010 [employer]- All Rights Reserved Reading location - IP/workstation name: [email or web address]
[2020-01-27 17:08] VITALS: BP 101/67
== END 2020-01-27 17:05 | disposition home or self-care (01) ==
LOC: ER 09:57
DX: N12 Tubulo-interstitial nephritis, not specified as acute or chronic (principal); R10.31 Right lower quadrant pain; I87.8 Other specified disorders of veins; N85.8 Other specified noninflammatory disorders of uterus; R11.2 Nausea with vomiting, unspecified; R50.9 Fever, unspecified; F17.200 Nicotine dependence, unspecified, uncomplicated; Z79.899 Other long term (current) drug therapy; Z79.3 Long term (current) use of hormonal contraceptives; Z88.1 Allergy status to other antibiotic agents; Z98.890 Other specified postprocedural states
CPT/HCPCS: 99285; 96365; 36415; 87040; 84702; 83690; 85025; 80053; 81001; 76830; 93976; 74177; J7030; J0744